=== PATIENT | male | born 1960 | race Caucasian/White ===

== ENCOUNTER 2017-04-16 06:14 | Emergency (ER) | payer OTHER, BC ==
[2017-04-16 06:18] VITALS: RESP 20
--- NOTE | 2017-04-16 07:05 | XR ---
EXAM: XR Chest, 2 Views CLINICAL HISTORY: Reason: cough/ cold sweats this morning TECHNIQUE: Frontal and lateral views of the chest. COMPARISON: Chest radiograph on 05/23/2014 FINDINGS: Hardware: None. Lungs/pleura: Normal. No focal consolidation. No pleural effusion or pneumothorax. Heart/mediastinum: Stable mild enlargement of the cardiac silhouette. Soft tissues: Unremarkable. Bones: No acute fracture. IMPRESSION: No acute disease identified.
[2017-04-16] MEDS ORDERED: IPRATROPIUM-ALBUTEROL 3 ML NEB INHALATION STA (07:21)
[2017-04-16] MEDS ORDERED: SODIUM CHLORIDE 0.9% 1,000 ML IV STA ×2 (07:24)
--- NOTE | 2017-04-16 07:24 | ED ---
URI HPI - General Chief Complaint: Upper Respiratory Infection Stated Complaint: Flu-Like symptoms Time Seen by Provider: 04/16/17 07:00 Source: patient, RN notes reviewed Mode of arrival: EMS Limitations: no limitations - History of Present Illness Initial Comments: This is a 56-year-old male who states he had the onset 5 days ago of a cough which is been persistent ever since and getting worse. He started developing fever of up to 101 nonproductive cough he's had sweats and some shortness of breath. Patient does have a history of angina and hypertension. He states he has taken his medication. He states the cough and symptoms seem to get better after taking Advil for yesterday he states on the way to work he started developing or sweats. He's here for evaluation. He denies any overt chest pain at this time. He does deny chest pain at this time the patient is a former smoker who just quit about a year ago. He also relates that he's been working out in a shed a lot of sawdust in dust over the past week. MD Complaint: fever, cough, nasal congestion - Related Data Home Medications Medication Instructions Recorded Confirmed Losartan/Hydrochlorothiazide 1 tab PO DAILY 05/23/14 04/16/17 [Losartan-Hctz 100-25 mg Tab] amLODIPine [Norvasc] 10 mg PO DAILY 04/16/17 04/16/17 Previous Rx's Medication Instructions Recorded Aspirin 81 mg PO DAILY #30 chewable 05/24/14 Albuterol Inhaler [Ventolin Hfa 2 puff INHALATION Q6HR PRN #1 04/16/17 Inhaler] inhaler Azithromycin [Zithromax Z-pack] 250 mg PO DIRECTED #6 tab 04/16/17 Allergies Allergy/AdvReac Type Severity Reaction Status Date / Time venom-honey bee Allergy Anaphylaxis Verified 04/16/17 07:38 [bee venom (honey bee)] Review of Systems ROS Statement: Those systems with pertinent positive or pertinent negative responses have been documented in the HPI. ROS Other: All systems not noted in ROS Statement are negative. Past Medical History Past Medical History: Hypertension History of Any Multi-Drug Resistant Organisms: None Reported Past Surgical History: Tonsillectomy Past Anesthesia/Blood Transfusion Reactions: No Reported Reaction Past Psychological History: No Psychological Hx Reported Smoking Status: Current every day smoker Past Alcohol Use History: Daily Past Drug Use History: None Reported General Exam - General Exam Comments Initial Comments: This is a well-developed well-nourished awake alert oriented times 3 male Limitations: no limitations General appearance: alert, in no apparent distress Head exam: Present: atraumatic, normocephalic, normal inspection Eye exam: Present: normal appearance, PERRL, EOMI. Absent: scleral icterus, conjunctival injection, periorbital swelling ENT exam: Present: mucous membranes moist, other (Boggy mucosa in both naris. TMs are slightly dull erythematous posterior pharynx reveals some hyperemia no exudates.) Neck exam: Present: normal inspection. Absent: tenderness, meningismus, lymphadenopathy Respiratory exam: Present: decreased breath sounds. Absent: respiratory distress, wheezes, rales, rhonchi, stridor Cardiovascular Exam: Present: normal rhythm, tachycardia, normal heart sounds. Absent: systolic murmur, diastolic murmur, rubs, gallop, clicks GI/Abdominal exam: Present: soft, normal bowel sounds. Absent: distended, tenderness, guarding, rebound, rigid Extremities exam: Present: normal inspection, full ROM, normal capillary refill. Absent: tenderness, pedal edema, joint swelling, calf tenderness Back exam: Present: normal inspection Neurological exam: Present: alert, oriented X3, CN II-XII intact Psychiatric exam: Present: normal affect, normal mood Skin exam: Present: warm, dry, intact, normal color. Absent: rash Course Vital Signs 04/16/17 04/16/17 04/16/17 06:16 06:48 07:46 Temperature 100.2 F H Pulse Rate 113 H 108 H Respiratory 20 Rate Blood Pressure 138/74 O2 Sat by Pulse 95 96 Oximetry 04/16/17 04/16/17 07:55 08:21 Temperature 98.6 F Pulse Rate 107 H 105 H Respiratory 20 Rate Blood Pressure 129/70 O2 Sat by Pulse 94 L Oximetry Medical Decision Making - Medical Decision Making Reevaluation patient reveals he is feeling much improved and breathing better. The presentation is consistent with bronchospasm likely secondary to sinusitis and postnasal drip he will be placed on appropriate medications including an inhaler. He is a follow-up with his doctor return when necessary - Lab Data Result diagrams: 04/16/17 07:50 04/16/17 07:50 Lab Results 0804/16/17 04/16/17 Range/Units 06:47 07:50 07:50 WBC 8.9 (3.8-10.6) k/uL RBC 5.27 (4.30-5.90) m/uL Hgb 16.0 (13.0-17.5) gm/dL Hct 45.4 (39.0-53.0) % MCV 86.1 (80.0-100.0) fL MCH 30.4 (25.0-35.0) pg MCHC 35.3 (31.0-37.0) g/dL RDW 13.1 (11.5-15.5) % Plt Count 209 (150-450) k/uL Neutrophils % 70 % Lymphocytes % 14 % Monocytes % 11 % Eosinophils % 1 % Basophils % 1 % Neutrophils # 6.2 (1.3-7.7) k/uL Lymphocytes # 1.2 (1.0-4.8) k/uL Monocytes # 1.0 (0-1.0) k/uL Eosinophils # 0.1 (0-0.7) k/uL Basophils # 0.1 (0-0.2) k/uL PT (9.0-12.0) sec INR (<1.2) APTT (22.0-30.0) sec Sodium (137-145) mmol/L Potassium (3.5-5.1) mmol/L Chloride (98-107) mmol/L Carbon Dioxide (22-30) mmol/L Anion Gap mmol/L BUN (9-20) mg/dL Creatinine (0.66-1.25) mg/dL Est GFR (MDRD) Af Amer (>60 ml/min/1.73 sqM) Est GFR (MDRD) Non-Af (>60 ml/min/1.73 sqM) Glucose (74-99) mg/dL Calcium (8.4-10.2) mg/dL Magnesium (1.6-2.3) mg/dL Total Bilirubin (0.2-1.3) mg/dL AST (17-59) U/L ALT (21-72) U/L Alkaline Phosphatase (38-126) U/L Total Creatine Kinase 93 (55-170) U/L CK-MB (CK-2) 0.5 (0.0-2.4) ng/mL CK-MB (CK-2) Rel Index 0.5 Troponin I <0.012 (0.000-0.034) ng/mL NT-Pro-B Natriuret Pep pg/mL Total Protein (6.3-8.2) g/dL Albumin (3.5-5.0) g/dL Influenza Type A RNA Not Detected (Not Detectd) Influenza Type B (PCR) Not Detected (Not Detectd) 04/16/17 04/16/17 04/16/17 Range/Units 07:50 07:50 07:50 WBC (3.8-10.6) k/uL RBC (4.30-5.90) m/uL Hgb (13.0-17.5) gm/dL Hct (39.0-53.0) % MCV (80.0-100.0) fL MCH (25.0-35.0) pg MCHC (31.0-37.0) g/dL RDW (11.5-15.5) % Plt Count (150-450) k/uL Neutrophils % % Lymphocytes % % Monocytes % % Eosinophils % % Basophils % % Neutrophils # (1.3-7.7) k/uL Lymphocytes # (1.0-4.8) k/uL Monocytes # (0-1.0) k/uL Eosinophils # (0-0.7) k/uL Basophils # (0-0.2) k/uL PT 11.2 (9.0-12.0) sec INR 1.1 (<1.2) APTT 23.9 (22.0-30.0) sec Sodium 138 (137-145) mmol/L Potassium 3.9 (3.5-5.1) mmol/L Chloride 103 (98-107) mmol/L Carbon Dioxide 24 (22-30) mmol/L Anion Gap 11 mmol/L BUN 19 (9-20) mg/dL Creatinine 1.06 (0.66-1.25) mg/dL Est GFR (MDRD) Af Amer >60 (>60 ml/min/1.73 sqM) Est GFR (MDRD) Non-Af >60 (>60 ml/min/1.73 sqM) Glucose 103 H (74-99) mg/dL Calcium 9.3 (8.4-10.2) mg/dL Magnesium 2.3 (1.6-2.3) mg/dL Total Bilirubin 0.7 (0.2-1.3) mg/dL AST 26 (17-59) U/L ALT 47 (21-72) U/L Alkaline Phosphatase 96 (38-126) U/L Total Creatine Kinase (55-170) U/L CK-MB (CK-2) (0.0-2.4) ng/mL CK-MB (CK-2) Rel Index Troponin I (0.000-0.034) ng/mL NT-Pro-B Natriuret Pep 37 pg/mL Total Protein 7.6 (6.3-8.2) g/dL Albumin 4.2 (3.5-5.0) g/dL Influenza Type A RNA (Not Detectd) Influenza Type B (PCR) (Not Detectd) - EKG Data -: EKG Interpreted by Ia EKG shows normal: sinus rhythm (Sinus tachycardia with a rate of 11. Interval 142 QRS duration 84 QT/QTC of 366/474 artifact is present this appears be a normal EKG except for the tachycardia.) - Radiology Data Radiology results: report reviewed (I did review the imaging and report no acute findings.), image reviewed Disposition Clinical Impression: Acute bronchospasm, Nasopharyngitis acute, Febrile illness, acute Disposition: HOME SELF-CARE Condition: Good Instructions: Upper Respiratory Infection (ED), Bronchospasm (ED), Pharyngitis (ED), Sinusitis (ED) Prescriptions: Albuterol Inhaler [Ventolin Hfa Inhaler] 2 puff INHALATION Q6HR PRN #1 inhaler PRN Reason: Dyspnea Azithromycin [Zithromax Z-pack] 250 mg PO DIRECTED #6 tab Referrals: Elliot Washburn DO [Primary Care Provider] - 1-2 days Decision Time: 09:10
[2017-04-16 08:18] LABS: INR 1.1 (<1.2); Partial Thromboplastin Time 23.9 sec (22.0-30.0); Prothrombin Time 11.2 sec (9.0-12.0)
[2017-04-16 08:24] LABS: Basophils # (A) 0.1 k/uL (0-0.2); Basophils % (A) 1 %; CH 29.6; CHCM 34.5; Eosinophils # (A) 0.1 k/uL (0-0.7); Eosinophils % (A) 1 %; HCT 45.4 % (39.0-53.0); HDW 2.51; Luc # (Auto) 0.38; Luc % (Auto) 4; Lymphocytes # (A) 1.2 k/uL (1.0-4.8); Lymphocytes % (A) 14 %; MCH 30.4 pg (25.0-35.0); MCHC 35.3 g/dL (31.0-37.0); MCV 86.1 fL (80.0-100.0); Mean Platelet Volume 7.6; Monocytes % (A) 11 %; Neutrophils # (A) 6.2 k/uL (1.3-7.7); Neutrophils % (A) 70 %; RBC 5.27 m/uL (4.30-5.90); RDW 13.1 % (11.5-15.5); WBC 8.9 k/uL (3.8-10.6)
[2017-04-16 08:31] LABS: ALT 47 U/L (21-72); AST 26 U/L (17-59); Alkaline Phosphatase 96 U/L (38-126); Anion Gap 11 mmol/L; Blood Urea Nitrogen 19 mg/dL (9-20); Calcium 9.3 mg/dL (8.4-10.2); Carbon Dioxide 24 mmol/L (22-30); Chloride 103 mmol/L (98-107); Glucose 103 mg/dL (74-99); Magnesium 2.3 mg/dL (1.6-2.3); Non-African American GFR(MDRD) >60 (>60 ml/min/1.73 sqM); Potassium 3.9 mmol/L (3.5-5.1); Sodium 138 mmol/L (137-145); Total Bilirubin 0.7 mg/dL (0.2-1.3); Total Protein 7.6 g/dL (6.3-8.2)
[2017-04-16 08:32] LABS: Creatine Kinase 93 U/L (55-170)
[2017-04-16 08:44] LABS: Creatine Kinase MB 0.5 ng/mL (0.0-2.4); Troponin I <0.012 ng/mL (0.000-0.034)
[2017-04-16 09:36] VITALS: BP 120/80; PULSE 100; TEMP 97.9
== END 2017-04-16 09:35 | disposition home or self-care (01) ==
LOC: EC 06:14
DX: J98.01 Acute bronchospasm (principal); J00 Acute nasopharyngitis [common cold]; R00.0 Tachycardia, unspecified; I10 Essential (primary) hypertension; Z79.899 Other long term (current) drug therapy; Z91.030 Bee allergy status; Z86.79 Personal history of other diseases of the circulatory system; Z90.89 Acquired absence of other organs
CPT/HCPCS: 36415; 71020; 80053; 82550; 82553; 83735; 83880; 84484; 85025; 85610; 85730; 87040; 87502; 93005; 94640; 96360; 96361; 99284

== ENCOUNTER 2024-02-16 18:22 | Observation (INO) | payer BC, OTHER ==
--- NOTE | 2024-02-16 18:47 | ED ---
General Adult HPI - General Chief complaint: Chest Pain Stated complaint: Chest pain Time Seen by Provider: 02/16/24 18:30 Source: patient, EMS, RN notes reviewed, old records reviewed Mode of arrival: EMS Limitations: no limitations - History of Present Illness Initial comments: Is a 63-year-old male who presents to the emergency department with a past medical history significant for smoking which he quit 7 years ago. Patient also states he had history of angina and has high blood pressure. Patient states today he had sharp chest pain on the left side that lasted a few seconds and then it went away and then it came back lasted a few more seconds he said the pain was pretty significant he then became a little bit lightheaded had some tingling down his left arm and that is when he made him nervous so he decided come to the emergency department. Patient denies any fever chills or cough. Patient denies any abdominal pain patient has nausea vomiting diarrhea. Patient states he was at no time short of breath. Patient states currently his chest pain-free - Related Data Home Medications Medication Instructions Recorded Confirmed Losartan/Hydrochlorothiazide 1 tab PO DAILY 05/23/14 02/16/24 [Losartan-Hctz 100-25 mg Tab] amLODIPine [Norvasc] 10 mg PO DAILY 04/16/17 02/16/24 Meloxicam [Mobic] 15 mg PO [id number] PRN 02/16/24 02/16/24 Previous Rx's Medication Instructions Recorded Aspirin 81 mg PO DAILY #30 chewable 05/24/14 Allergies Allergy/AdvReac Type Severity Reaction Status Date / Time venom-honey bee Allergy Anaphylaxis Verified 02/16/24 19:28 [bee venom (honey bee)] Review of Systems ROS Statement: Those systems with pertinent positive or pertinent negative responses have been documented in the HPI. ROS Other: All systems not noted in ROS Statement are negative. Past Medical History Past Medical History: Hypertension History of Any Multi-Drug Resistant Organisms: None Reported Past Surgical History: Tonsillectomy Past Anesthesia/Blood Transfusion Reactions: No Reported Reaction Past Psychological History: No Psychological Hx Reported Past Alcohol Use History: Daily Past Drug Use History: None Reported General Exam - General Exam Comments Initial Comments: GENERAL: Patient is well-developed and well-nourished. Patient is nontoxic and well- hydrated and is in no acute distress. ENT: Neck is soft and supple. No significant lymphadenopathy is noted. Oropharynx is clear. Moist mucous membranes. Neck has full range of motion without eliciting any pain. EYES: The sclera were anicteric and conjunctiva were pink and moist. Extraocular movements were intact and pupils were equal round and reactive to light. Eyelids were unremarkable. PULMONARY: Unlabored respirations. Good breath sounds bilaterally. No audible rales rhonchi or wheezing was noted. CARDIOVASCULAR: There is a regular rate and rhythm without any murmurs gallops or rubs. ABDOMEN: Soft and nontender with normal bowel sounds. SKIN: Skin is clear with no lesions or rashes and otherwise unremarkable. NEUROLOGIC: Patient is alert and oriented x3. Cranial nerves II through XII are grossly intact. Motor and sensory are also intact. Normal speech, volume and content. Symmetrical smile. MUSCULOSKELETAL: Normal extremities with adequate strength and full range of motion. No lower extremity swelling or edema. No calf tenderness. LYMPHATICS: No significant lymphadenopathy is noted PSYCHIATRIC: Normal psychiatric evaluation. Limitations: no limitations Course Vital Signs 02/16/24 02/16/24 18:26 19:27 Temperature 98.5 F Pulse Rate 104 H 103 H Respiratory 18 18 Rate Blood Pressure 156/91 126/72 O2 Sat by Pulse 96 96 Oximetry Medical Decision Making - Medical Decision Making EKG was interpreted by myself read EKG shows sinus rhythm at 99 bpm parable 270 QRS 112 QT interval 371 QTc is 427. Patient's EKG shows no ST segment elevation or depression Was pt. sent in by a medical professional or institution (, PA, CAMERA PERSON, urgent care, hospital, or prison...) When possible be specific @ -No Did you speak to anyone other than the patient for history (EMS, parent, family, police, friend...)? What history was obtained from this source @ -No Did you review nursing and triage notes (agree or disagree)? Why? @ -I reviewed and agree with nursing and triage notes Were old charts reviewed (outside hosp., previous admission, EMS record, old EKG, old radiological studies, urgent care reports/EKG's, prison records)? Report findings @ -No old charts were reviewed Differential Diagnosis (chest pain, altered mental status, abdominal pain women, abdominal pain men, vaginal bleeding, weakness, fever, dyspnea, syncope, headache, dizziness, GI bleed, back pain, seizure, CVA, palpatations, mental health, musculoskeletal)? @ -Differential Chest Pain: Stable Angina, Unstable Angina, STEMI, NSTEMI Aortic Dissection, Pneumothorax, Musculoskeletal, Esophageal Spasm GERD, Cholecystitis, Pancreatitis, Zoster, thi s is not meant to be an all-inclusive list. EKG interpreted by me (3pts min.). @ -As above X-rays interpreted by me (1pt min.). @ -X-ray shows no acute amount CT interpreted by me (1pt min.). @ -None done U/S interpreted by me (1pt. min.). @ -None done What testing was considered but not performed or refused? (CT, X-rays, U/S, labs)? Why? @ -None What meds were considered but not given or refused? Why? @ -None Did you discuss the management of the patient with other professionals (professionals i.e. , PA, CAMERA PERSON, lab, RT, psych nurse, renal social worker, construction supervisor, teacher, security flex officer, protective services case worker)? Give summary @ -Spoke with the significant hospitalist agreed admit the patient to the patient would admitting orders Was smoking cessation discussed for >3mins.? @ -No Was critical care preformed (if so, how long)? @ -No Were there social determinants of health that impacted care today? How? ( Homelessness, low income, unemployed, alcoholism, drug addiction, transportation, low edu. Level, literacy, decrease access to med. care, fpc, rehab)? @ -No Was there de-escalation of care discussed even if they declined (Discuss DNR or withdrawal of care, Hospice)? DNR status @ -No What co-morbidities impacted this encounter? (DM, HTN, Smoking, COPD, CAD, Cancer, CVA, ARF, Chemo, Hep., AIDS, mental health diagnosis, sleep apnea, morbid obesity)? @ -None Was patient admitted / discharged? Hospital course, mention meds given and route, prescriptions, significant lab abnormalities, going to OR and other pertinent info. @ -Patient had no more chest pain while in the emergency department. Patient however was tachycardic at about 110 beats at rest with no fever. Patient did describe pain or discomfort in the left arm when this occurred earlier and being very lightheaded. Patient is an ex-smoker of 40 years and has high blood pressure. Undiagnosed new problem with uncertain prognosis? @ -No Drug Therapy requiring intensive monitoring for toxicity (Heparin, Nitro, Insulin, Cardizem)? @ -No Were any procedures done? @ -No Diagosis/symptom? @ -Chest pain Acute, or Chronic, or Acute on Chronic? @ -Acute Uncomplicated (without systemic symptoms) or Complicated (systemic symptoms)? @ -Complicated Side effects of treatment? @ -No Exacerbation, Progression, or Severe Exacerbation? @ -No Poses a threat to life or bodily function? How? (Chest pain, USA, LA, pneumonia, PE, COPD, DKA, ARF, appy, cholecystitis, CVA, Diverticulitis, Homicidal, Suicidal, threat to staff... and all critical care pts) @ -Yes this could lead to an LA - Lab Data Result diagrams: 02/16/24 18:58 02/16/24 18:58 Lab Results 02/16/24 02/16/24 02/16/24 Range/Units 18:58 18:58 18:58 WBC 8.6 (3.8-10.6) k/uL RBC 4.89 (4.30-5.90) m/uL Hgb 14.6 (13.0-17.5) gm/dL Hct 44.9 (39.0-53.0) % MCV 91.8 (80.0-100.0) fL MCH 29.9 (25.0-35.0) pg MCHC 32.6 (31.0-37.0) g/dL RDW 13.6 (11.5-15.5) % Plt Count 170 (150-450) k/uL MPV 8.9 Neutrophils % 63 % Lymphocytes % 25 % Monocytes % 7 % Eosinophils % 2 % Basophils % 1 % Neutrophils # 5.4 (1.3-7.7) k/uL Lymphocytes # 2.2 (1.0-4.8) k/uL Monocytes # 0.6 (0-1.0) k/uL Eosinophils # 0.2 (0-0.7) k/uL Basophils # 0.1 (0-0.2) k/uL PT 10.5 (10.0-12.5) sec INR 1.0 (<1.2) APTT 19.8 L (22.0-30.0) sec D-Dimer 0.49 (<0.60) mg/L FEU Sodium 138 (137-145) mmol/L Potassium 3.6 (3.5-5.1) mmol/L Chloride 104 (98-107) mmol/L Carbon Dioxide 22 (22-30) mmol/L Anion Gap 12 mmol/L BUN 25 H (9-20) mg/dL Creatinine 0.93 (0.66-1.25) mg/dL Est GFR (CKD-EPI)AfAm >90 (>60 ml/min/1.73 sqM) Est GFR (CKD-EPI)NonAf 87 (>60 ml/min/1.73 sqM) Glucose 104 H (74-99) mg/dL Calcium 9.9 (8.4-10.2) mg/dL Magnesium 1.9 (1.6-2.3) mg/dL Total Bilirubin 0.6 (0.2-1.3) mg/dL AST 23 (17-59) U/L ALT 33 (4-49) U/L Alkaline Phosphatase 106 (38-126) U/L Troponin I (0.000-0.034) ng/mL Total Protein 7.6 (6.3-8.2) g/dL Albumin 4.6 (3.5-5.0) g/dL 02/16/24 Range/Units 18:58 WBC (3.8-10.6) k/uL RBC (4.30-5.90) m/uL Hgb (13.0-17.5) gm/dL Hct (39.0-53.0) % MCV (80.0-100.0) fL MCH (25.0-35.0) pg MCHC (31.0-37.0) g/dL RDW (11.5-15.5) % Plt Count (150-450) k/uL MPV Neutrophils % % Lymphocytes % % Monocytes % % Eosinophils % % Basophils % % Neutrophils # (1.3-7.7) k/uL Lymphocytes # (1.0-4.8) k/uL Monocytes # (0-1.0) k/uL Eosinophils # (0-0.7) k/uL Basophils # (0-0.2) k/uL PT (10.0-12.5) sec INR (<1.2) APTT (22.0-30.0) sec D-Dimer (<0.60) mg/L FEU Sodium (137-145) mmol/L Potassium (3.5-5.1) mmol/L Chloride (98-107) mmol/L Carbon Dioxide (22-30) mmol/L Anion Gap mmol/L BUN (9-20) mg/dL Creatinine (0.66-1.25) mg/dL Est GFR (CKD-EPI)AfAm (>60 ml/min/1.73 sqM) Est GFR (CKD-EPI)NonAf (>60 ml/min/1.73 sqM) Glucose (74-99) mg/dL Calcium (8.4-10.2) mg/dL Magnesium (1.6-2.3) mg/dL Total Bilirubin (0.2-1.3) mg/dL AST (17-59) U/L ALT (4-49) U/L Alkaline Phosphatase (38-126) U/L Troponin I <0.012 (0.000-0.034) ng/mL Total Protein (6.3-8.2) g/dL Albumin (3.5-5.0) g/dL Disposition Clinical Impression: Chest pain Disposition: ADMITTED IP TO THIS HOSP Referrals: Elliot Washburn DO [Primary Care Provider] - 1-2 days Time of Disposition: 20:55
[2024-02-16 19:14] LABS: Basophils # (A) 0.1 k/uL (0-0.2); Basophils % (A) 1 %; Eosinophils # (A) 0.2 k/uL (0-0.7); Eosinophils % (A) 2 %; HCT 44.9 % (39.0-53.0); HGB 14.6 gm/dL (13.0-17.5); Lymphocytes # (A) 2.2 k/uL (1.0-4.8); Lymphocytes % (A) 25 %; MCH 29.9 pg (25.0-35.0); MCHC 32.6 g/dL (31.0-37.0); MCV 91.8 fL (80.0-100.0); Mean Platelet Volume 8.9; Monocytes # (A) 0.6 k/uL (0-1.0); Monocytes % (A) 7 %; Neutrophils # (A) 5.4 k/uL (1.3-7.7); Neutrophils % (A) 63 %; Platelet Count 170 k/uL (150-450); RBC 4.89 m/uL (4.30-5.90); RDW 13.6 % (11.5-15.5); WBC 8.6 k/uL (3.8-10.6)
--- NOTE | 2024-02-16 19:23 | XR ---
EXAMINATION TYPE: XR chest 2V DATE OF EXAM: 02/16/2024 COMPARISON: 04/16/2017 HISTORY: Chest pain TECHNIQUE: Frontal and lateral views of the chest are obtained. FINDINGS: There is no focal air space opacity, pleural effusion, or pneumothorax seen. The cardiac silhouette size is within normal limits. The osseous structures are intact. IMPRESSION: No acute cardiopulmonary process.
[2024-02-16 19:30] LABS: Prothrombin Time 10.5 sec (10.0-12.5)
[2024-02-16 19:41] LABS: Partial Thromboplastin Time 19.8 sec (22.0-30.0)
[2024-02-16 19:48] LABS: ALT 33 U/L (4-49); AST 23 U/L (17-59); African American GFR (CKD) >90 (>60 ml/min/1.73 sqM); Albumin 4.6 g/dL (3.5-5.0); Alkaline Phosphatase 106 U/L (38-126); Anion Gap 12 mmol/L; Blood Urea Nitrogen 25 mg/dL (9-20); Calcium 9.9 mg/dL (8.4-10.2); Carbon Dioxide 22 mmol/L (22-30); Chloride 104 mmol/L (98-107); Glucose 104 mg/dL (74-99); Magnesium 1.9 mg/dL (1.6-2.3); Non-African American GFR(CKD) 87 (>60 ml/min/1.73 sqM); Potassium 3.6 mmol/L (3.5-5.1); Sodium 138 mmol/L (137-145); Total Bilirubin 0.6 mg/dL (0.2-1.3); Total Protein 7.6 g/dL (6.3-8.2)
[2024-02-16] MEDS ORDERED: NITROGLYCERIN SL TABS 0.4 MG TAB SUBLINGUAL PRN (20:55)
[2024-02-16] MEDS: NITROGLYCERIN OINT 1 INCH/GM PACKET TOPICAL SCH (22:58)
[2024-02-17 07:39] VITALS: BP 122/72; PULSE 71; RESP 18; TEMP 97.7
[2024-02-17] MEDS ORDERED: DOBUTamine DRIP for NUC MED 500 MG in DEXTROSE/WATER 1 250ML.BAG IV PRN (08:30)
[2024-02-17 08:58] LABS: Chol/HDL Ratio 3.97 Ratio; LDL Cholesterol,Calculated 107.6 mg/dL (0.0-131.0)
[2024-02-17] MEDS ORDERED: ASPIRIN 325 MG TAB PO SCH (09:00)
[2024-02-17] MEDS: amLODIPine 10 MG TAB PO SCH (09:22)
[2024-02-17] MEDS: LOSARTAN-HCTZ 50-12.5 MG 1 EACH TAB PO SCH (09:22)
[2024-02-17] MEDS: ASPIRIN 81 MG PO SCH (09:23)
--- NOTE | 2024-02-17 10:26 | P.CRDCN ---
History of Present Illness History of present illness: HISTORY OF PRESENT ILLNESS: This is a 63-year-old male with a past medical history significant for hypertension and obesity. 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 We have been asked to see the patient in consultation for chest pain. Patient examined at the bedside. Patient states yesterday he was working out in his garden and when he went inside he began to have pain. He states the pain was on the left side of his chest. He describes it as a sharp pain that would come and go. He does report having some tingling in his arm. He states that he is somewhat active and usually does not have chest pain or shortness of breath with exertion. At the time of examination he denies any chest pain or pressure. He states he is adopted so he does not know his family history. He denies any alcohol use. He is a former cigarette smoker and quit smoking 7 years ago. DIAGNOSTICS: - EKG reveals sinus mechanism with no signs of acute ischemia. - Chest xray negative for acute process. - Laboratory data: WBC 8.6. Hemoglobin 14.6. Platelet count 170. D-dimer 0.49. Sodium 138. Potassium 3.6. BUN 25. Creatinine 0.93. Magnesium 1.9. Troponin negative x 3. - Current home cardiac medications include aspirin 81 mg daily, amlodipine 10 mg daily, losartanhydrochlorothiazide 100-25 mg daily. REVIEW OF SYSTEMS: At the time of my exam: CONSTITUTIONAL: Denies fever or chills. HEENT: Denies blurred vision, vision changes, or eye pain. Denies hemoptysis CARDIOVASCULAR: Denies chest pain. Denies orthopnea. Denies PND. Denies palpitations RESPIRATORY: Denies shortness of breath. GASTROINTESTINAL: Denies abdominal pain. Denies nausea or vomiting. HEMATOLOGIC: Denies bleeding disorders. GENITOURINARY: Denies any blood in urine. SKIN: Denies pruitis. Denies rash. PHYSICAL EXAM: VITAL SIGNS: Reviewed. GENERAL: Well-developed in no acute distress. HEENT: Head is normocephalic. Pupils are equal, round. Sclerae anicteric. Mucous membranes of the mouth are moist. Neck supple. No JVD or thyromegaly LUNGS: Respirations even and unlabored. Lungs essentially clear to auscultation bilaterally. HEART: Regular rate and rhythm. S1 and S2 heard. ABDOMEN: Soft. Nondistended. Nontender. EXTREMITIES: Normal range of motion. No clubbing or cyanosis. Peripheral pulses intact. No lower extremity edema NEUROLOGIC: Awake and alert. Oriented x 3. ASSESSMENT: Chest pain, troponin negative x 3 Hypertension Obesity: BMI 34.7 Former nicotine dependence, patient quit smoking 6 years ago PLAN: An acute coronary but has been ruled out Resume home cardiac medications Obtain 2D echo to assess cardiac structure and function Patient to undergo dobutamine stress echo today If negative, he may be discharged home from a cardiac standpoint Further recommendations pending patient course Nurse practitioner note has been reviewed by physician. Signing provider agrees with the documented findings, assessment, and plan of care documented by LAP LAYER as a scribe. Past Medical History Past Medical History: Chest Pain / Angina, Hypertension History of Any Multi-Drug Resistant Organisms: None Reported Past Surgical History: Tonsillectomy Past Anesthesia/Blood Transfusion Reactions: No Reported Reaction Past Psychological History: No Psychological Hx Reported Smoking Status: Former smoker Past Alcohol Use History: Occasional Past Drug Use History: None Reported Medications and Allergies Home Medications Medication Instructions Recorded Confirmed Type Losartan/Hydrochlorothiazide 1 tab PO DAILY 05/23/14 02/16/24 History [Losartan-Hctz 100-25 mg Tab] Aspirin 81 mg PO DAILY #30 chewable 05/24/14 02/16/24 Rx amLODIPine [Norvasc] 10 mg PO DAILY 04/16/17 02/16/24 History Meloxicam [Mobic] 15 mg PO PC-BRKFST PRN 02/16/24 02/16/24 History Allergies Allergy/AdvReac Type Severity Reaction Status Date / Time venom-honey bee Allergy Anaphylaxis Verified 02/16/24 19:28 [bee venom (honey bee)] Physical Exam Vitals: Vital Signs Temp Pulse Pulse Resp BP BP Pulse Ox 02/17/24 07:00 97.7 F 71 18 122/72 97 02/17/24 02:30 97.5 F L 60 16 125/57 98 02/16/24 22:54 98.4 F 83 16 128/65 97 02/16/24 19:27 103 H 18 126/72 96 02/16/24 18:26 98.5 F 104 H 18 156/91 96 Intake and Output 02/16/24 02/17/24 02/17/24 22:59 06:59 14:59 Other: Voiding Method Toilet Weight 122.47 kg Results 02/16/24 18:58 02/16/24 18:58 Cardiac Enzymes 02/16/24 02/16/24 02/16/24 Range/Units 18:58 18:58 22:24 AST 23 (17-59) U/L Troponin I <0.012 <0.012 (0.000-0.034) ng/mL 02/17/24 Range/Units 02:25 AST (17-59) U/L Troponin I <0.012 (0.000-0.034) ng/mL Coagulation 02/16/24 Range/Units 18:58 PT 10.5 (10.0-12.5) sec APTT 19.8 L (22.0-30.0) sec CBC 02/16/24 Range/Units 18:58 WBC 8.6 (3.8-10.6) k/uL RBC 4.89 (4.30-5.90) m/uL Hgb 14.6 (13.0-17.5) gm/dL Hct 44.9 (39.0-53.0) % Plt Count 170 (150-450) k/uL Comprehensive Metabolic Panel 02/16/24 Range/Units 18:58 Sodium 138 (137-145) mmol/L Potassium 3.6 (3.5-5.1) mmol/L Chloride 104 (98-107) mmol/L Carbon Dioxide 22 (22-30) mmol/L BUN 25 H (9-20) mg/dL Creatinine 0.93 (0.66-1.25) mg/dL Glucose 104 H (74-99) mg/dL Calcium 9.9 (8.4-10.2) mg/dL AST 23 (17-59) U/L ALT 33 (4-49) U/L Alkaline Phosphatase 106 (38-126) U/L Total Protein 7.6 (6.3-8.2) g/dL Albumin 4.6 (3.5-5.0) g/dL Current Medications Generic Name Dose Route Start Last Admin Trade Name Freq PRN Reason Stop Dose Admin Amlodipine Besylate 10 mg 02/17/24 09:00 Amlodipine 10 Mg Tab PO DAILY [facility] Aspirin 81 mg 02/17/24 09:00 Aspirin 325 Mg Tab PO DAILY [facility] Nitroglycerin 0.4 mg 02/16/24 20:55 Nitroglycerin Sl Tabs 0.4 Mg Tab SUBLINGUAL Q5M PRN Chest Pain Non-Formulary Medication 1 tab 02/17/24 09:00 Losartan/Hydrochlorothiazide [Losartan-Hctz 100-25 Mg Tab] PO DAILY ALES[facility] Intake and Output 02/16/24 02/17/24 02/17/24 22:59 06:59 14:59 Other: Voiding Method Toilet Weight 122.47 kg 02/16/24 18:58 02/16/24 18:58
--- NOTE | 2024-02-17 10:32 | P.HPIM ---
History of Present Illness This is a pleasant 63 years old male who presents initially because of chest pain associated with left arm numbness His chest pain was on the left side nonradiating felt like sharp but currently completely resolved and he is asymptomatic this morning Patient denies any other symptoms like dyspnea coughing headache dizziness weakness or numbness. No urinary or GI complaints He denies smoking alcohol or illicit drugs At home he takes aspirin 81 mg Vitals are stable he has unremarkable CBC, BMP, LFT D-dimer negative at 0.49 Troponins are negative x 3 Chest x-ray showing no acute process EKG sinus rhythm at [address]-T changes He is currently placed on aspirin 325 mg Teaching Dietitian recommending to do stress test today and if negative he may be considered for discharge Echocardiogram also ordered Review of Systems Review of systems CONSTITUTIONAL: No fever, no malaise, no fatigue. HEENT: No recent visual problems or hearing problems. Denied any sore throat. CARDIOVASCULAR: No orthopnea, PND, no palpitations, no syncope. PULMONARY: No shortness of breath, no cough, no hemoptysis. GASTROINTESTINAL: No diarrhea, no nausea, no vomiting, no abdominal pain. Normoactive bowel sounds. NEUROLOGICAL: No headaches, no weakness, no numbness. HEMATOLOGICAL: Denies any bleeding or petechiae. GENITOURINARY: Denies any burning micturition, frequency, or urgency. MUSCULOSKELETAL/RHEUMATOLOGICAL: Denies any joint pain, swelling, or any muscle pain. ENDOCRINE: Denies any polyuria or polydipsia. Past Medical History Past Medical History: Chest Pain / Angina, Hypertension History of Any Multi-Drug Resistant Organisms: None Reported Past Surgical History: Tonsillectomy Past Anesthesia/Blood Transfusion Reactions: No Reported Reaction Past Psychological History: No Psychological Hx Reported Smoking Status: Former smoker Past Alcohol Use History: Occasional Past Drug Use History: None Reported Medications and Allergies Home Medications Medication Instructions Recorded Confirmed Type Losartan/Hydrochlorothiazide 1 tab PO DAILY 05/23/14 02/16/24 History [Losartan-Hctz 100-25 mg Tab] Aspirin 81 mg PO DAILY #30 chewable 05/24/14 02/16/24 Rx amLODIPine [Norvasc] 10 mg PO DAILY 04/16/17 02/16/24 History Meloxicam [Mobic] 15 mg PO PC-BRKFST PRN 02/16/24 02/16/24 History Allergies Allergy/AdvReac Type Severity Reaction Status Date / Time venom-honey bee Allergy Anaphylaxis Verified 02/16/24 19:28 [bee venom (honey bee)] Physical Exam Vitals: Vital Signs Temp Pulse Pulse Resp BP BP Pulse Ox 02/17/24 08:43 96 02/17/24 07:00 97.7 F 71 18 122/72 97 02/17/24 02:30 97.5 F L 60 16 125/57 98 02/16/24 22:54 98.4 F 83 16 128/65 97 02/16/24 19:27 103 H 18 126/72 96 02/16/24 18:26 98.5 F 104 H 18 156/91 96 Intake and Output 02/16/24 02/17/24 02/17/24 22:59 06:59 14:59 Other: Voiding Method Toilet Weight 122.47 kg GENERAL: The patient is alert and oriented x3, not in any acute distress. Well developed, well nourished. HEENT: Pupils are round and equally reacting to light. EOMI. No scleral icterus. No conjunctival pallor. Normocephalic, atraumatic. No pharyngeal erythema. No thyromegaly. CARDIOVASCULAR: S1 and S2 present. No murmurs, rubs, or gallops. PULMONARY: Chest is clear to auscultation, no wheezing , no crackles. ABDOMEN: Soft, nontender, nondistended, normoactive bowel sounds. No palpable organomegaly. MUSCULOSKELETAL: No joint swelling or deformity. EXTREMITIES: No cyanosis, clubbing, or pedal edema. NEUROLOGICAL: Gross neurological examination did not reveal any focal deficits. SKIN: No rashes. no petechiae. Results CBC & Chem 7: 02/16/24 18:58 02/16/24 18:58 Labs: Abnormal Lab Results - Last 24 Hours (Table) 02/16/24 02/16/24 Range/Units 18:58 18:58 APTT 19.8 L (22.0-30.0) sec BUN 25 H (9-20) mg/dL Glucose 104 H (74-99) mg/dL Thrombosis Risk Factor Assmnt - Choose All That Apply Any of the Below Risk Factors Present?: Yes Each Factor Represents 1 point: Obesity (BMI >25) Thrombosis Risk Factor Assessment Total Risk Factor Score: 1 Thrombosis Risk Factor Assessment Level: Low Risk Assessment and Plan Assessment: Chest pain, currently resolved, rule out cardiac causes. D-dimer negative Hypertension Obesity with BMI of 34 Plan: Evaluated by change management expert May discharge if stress test negative Echocardiogram ordered Continue with aspirin Possible discharge today
--- NOTE | 2024-02-17 13:28 | CA ---
Transthoracic Echo Report Name: Alexander Cramer Age: 63 Gender: M : 1960 Exam Date: 02/17/2024 10:05 Exam Location: [facility] Ht (in): 74 Wt (lb): 270 Ordering Physician: Stella Jones Attending/Referring Phys: [id number], Karen Rivet Flunky Jackelin Peacock RDCS Procedure CPT: Indications: LV function, CP Cardiac Hx: Technical Quality: Technically difficult study Contrast 1: Definity Total Dose (mL): 2 Contrast 2: Total Dose (mL): MEASUREMENTS (Male / Female) Normal Values 2D ECHO LV Diastolic Diameter PLAX 5.8 cm 4.2 - 5.9 / 3.9 - 5.3 cm LV Systolic Diameter PLAX 4.4 cm IVS Diastolic Thickness 1.0 cm 0.6 - 1.0 / 0.6 - 0.9 cm LVPW Diastolic Thickness 0.9 cm 0.6 - 1.0 / 0.6 - 0.9 cm LV Relative Wall Thickness 0.3 RV Internal Dim ED PLAX 3.5 cm LVOT Diameter 2.5 cm LV Diastolic Volume MOD BP 129.8 cm??? 67 - 155 / 56 - 104 cm??? LV Systolic Volume MOD BP 55.1 cm??? 22 - 58 / 19 - 49 cm??? LV Ejection Fraction MOD BP 57.6 % >= 55 % LV Cardiac Index MOD BP 1952.0 cm???/min???m??? LV Diastolic Volume MOD 4C 155.3 cm??? LV Systolic Volume MOD 4C 62.9 cm??? LV Ejection Fraction MOD 4C 59.5 % LV Cardiac Index MOD 4C 2411.4 cm???/min???m??? LV Diastolic Length 4C 8.6 cm LV Systolic Length 4C 7.4 cm LV Diastolic Volume MOD 2C 107.4 cm??? LV Systolic Volume MOD 2C 45.3 cm??? LV Ejection Fraction MOD 2C 57.8 % LV Cardiac Index MOD 2C 1620.9 cm???/min???m??? LV Diastolic Length 2C 8.5 cm LV Systolic Length 2C 6.8 cm LA Volume 60.4 cm??? 18 - 58 / 22 - 52 cm??? LA Volume Index 23.5 cm???/m??? 16 - 28 cm???/m??? Ascending Aorta Diameter 3.5 cm DOPPLER AV Peak Velocity 115.2 cm/s AV Peak Gradient 5.3 mmHg AV Mean Velocity 80.3 cm/s AV Mean Gradient 2.8 mmHg AV Velocity Time Integral 23.5 cm LVOT Peak Velocity 102.9 cm/s LVOT Peak Gradient 4.2 mmHg LVOT Velocity Time Integral 23.5 cm LVOT Stroke Volume 113.3 cm??? LVOT Stroke Volume Index 45.9 ml/m??? LVOT Cardiac Index 2957.4 cm???/min???m??? AV Area Cont Eq vti 4.8 cm??? AV Area Cont Eq pk 4.3 cm??? MV Area PHT 3.9 cm??? Mitral E Point Velocity 47.5 cm/s Mitral A Point Velocity 85.8 cm/s Mitral E to A Ratio 0.6 MV Deceleration Time 194.3 ms TR Peak Velocity 238.6 cm/s TR Peak Gradient 22.8 mmHg Right Atrial Pressure 5.0 mmHg Pulmonary Artery Systolic Pressu 27.8 mmHg Right Ventricular Systolic Press 27.8 mmHg PV Peak Velocity 66.8 cm/s PV Peak Gradient 1.8 mmHg FINDINGS Left Ventricle Left ventricular ejection fraction is estimated at 55-60 %. Left ventricular cavity size normal. Left ventricular wall thickness normal. No obvious regional wall motion abnormalities. Right Ventricle Right ventricle not well visualized. Right ventricular systolic pressure within normal limits. Right Atrium Normal right atrial size. Left Atrium Mildly increased left atrial volume. Mitral Valve Structurally normal mitral valve. No mitral stenosis,or prolapse.trace mitral regurgitation. Aortic Valve Aortic valve not well visualized. No aortic valve stenosis or regurgitation. Tricuspid Valve Structurally normal tricuspid valve. No tricuspid stenosis. Mild tricuspid regurgitation. Pulmonic Valve Pulmonic valve not well visualized. No pulmonic stenosis. No pulmonic regurgitation. Pericardium No pericardial effusion. Aorta Normal size aortic root and proximal ascending aorta. CONCLUSIONS Technically difficult study. Definity ECHO contrast used for improved visualization of the endocardial borders (inadequate visualization of two or more contiguous segments). Normal left ventricle size and systolic function Trace mitral with mild tricuspid regurgitation Previewed by: Dr. Waldemar Marinelli MD (Electronically Signed) Final Date: 17 February 2024 13:27
--- NOTE | 2024-02-17 13:30 | CA ---
Dobutamine Stress Echocardiogram Report Alexander Cramer Age: 63 Gender: M : 1960 Exam Date: 02/17/2024 11:20 Exam Location: [facility] Ordering Physician: Stella Jones Referring Physician: [id number] Wire Taper: Inessa Lang RDCS Technologist: Ht (in): 74 Wt (lb): 270 Procedure CPT: Indication: CP ICD-9 Codes: Rhythm: Patient History: Cardiac Medications: SEE CHART Medications in past 24 hours: Contrast: Definity Total Dose (mL): 2 Stress Results Protocol: Dobutamine Peak Dose (???g/kg/min): 30 Duration (min:sec): Atropine:(mg) Target HR: 133 Double Product: [id number] Resting HR: 72 Resting BP: 122 / 47 Peak HR: 156 Peak BP: 194 / 55 Max Predicted HR: 157 99 % Max Predicted HR Stress Summary: BP Response: Reason for Termination: Exceeded target heart rate (85% max predicted) Cardiac Symptoms: NO SYMPTOMS ECG Analysis Resting EKG: Normal sinus rhythm, normal ECG Stress EKG: No abnormal ST/T wave changes with exercise Arrhythmia: Occasional PVCs Echo Analysis Base Echo Analysis: Normal resting echocardiogram. Low Echo Anaylsis: Normal wall thickening and motion Peak Echo Analysis: No segmental wall motion abnormality Recovery Echo: Normal ejection fraction MEASUREMENTS (Male/Female) Normal Values CONCLUSIONS Normal response to Dobutamine. No echocardiographic evidence of myocardial ischemia. Normal Dobutamine stress echocardiogram. Dr. Waldemar Marinelli MD (Electronically Signed) Final Date: 17 February 2024 13:29
== END 2024-02-17 14:36 | disposition home or self-care (01) ==
LOC: EC 18:22 → 6NMEDSUR 20:55
PROVIDERS: ADMIT Hospitalist; ATTEND Hospitalist
DX: R07.89 Other chest pain (principal); I10 Essential (primary) hypertension; R00.0 Tachycardia, unspecified; R20.2 Paresthesia of skin; R20.0 Anesthesia of skin; E66.9 Obesity, unspecified; Z68.34 Body mass index [BMI] 34.0-34.9, adult; Z79.82 Long term (current) use of aspirin; Z79.899 Other long term (current) drug therapy; Z91.030 Bee allergy status; Z87.891 Personal history of nicotine dependence
CPT/HCPCS: 99285; 36415; 94760; 93005; 93306; 93351; 85379; 80061; 80053; 83735; 84484 ×2; 85025; 85610; 85730; 71046; G0378 ×2; Q9957